=== PATIENT | male | born 1985 | race Two or more races ===

== ENCOUNTER 2023-11-04 09:29 | Inpatient (IN) | payer MEDICAID, OTHER ==
[~2023-11-04] VITALS: Ht 165.1 cm; Wt 68.2 kg
[2023-11-04 09:57] LABS: BASOPHILS % (AUTO) 0.4 % (0.0-2.0); EOSINOPHILS % (AUTO) 0.1 % (1.0-6.0); HEMATOCRIT 44.1 % (41-53); HEMOGLOBIN 14.8 g/dL (13.5-17.5); LYMPHOCYTES # (AUTO) 2.2 K/uL (1.0-4.8); LYMPHOCYTES % (AUTO) 17.3 % (22.0-44.0); MEAN CORPUSCULAR HEMOGLOBIN 32.1 pg (26.0-34.0); MEAN CORPUSCULAR HGB CONC 33.6 G/dL (31.0-37.0); MEAN CORPUSCULAR VOLUME 96 fL (80-100); MONOCYTES # (AUTO) 0.5 K/uL (0.1-1.0); MONOCYTES % (AUTO) 4.3 % (2.0-9.0); NEUTROPHILS # (AUTO) 9.9 K/uL (1.8-7.7); NEUTROPHILS % (AUTO) 77.9 % (40.0-70.0); PLATELET COUNT (AUTO) 303 K/uL (150-450); RED BLOOD CELL COUNT(AUTO) 4.61 MIL/uL (4.50-5.90); RED CELL DISTRIBUTION WIDTH 14.2 % (11.5-14.5); WHITE BLOOD COUNT (AUTO) 12.7 K/uL (4.5-11.0)
[2023-11-04 10:11] LABS: ANION GAP 10 mmol/L (8-16); CALCIUM, TOTAL 10.1 mg/dL (8.8-10.5); CARBON DIOXIDE 30 mmol/L (22-29); CHLORIDE 105 mmol/L (98-107); CREATININE 1.02 mg/dL (0.60-1.30); GLOMERULAR FILTR. RATE CALC > 60 mL/min (>60); GLUCOSE,RANDOM 120 mg/dL (70-110); POTASSIUM 4.5 mmol/L (3.5-5.1); SODIUM SERUM 145 mmol/L (136-145); UREA NITROGEN, BLOOD 12 mg/dL (7-18)
[2023-11-04 10:13] LABS: ALCOHOL, BLOOD (SERUM) < 3 mg/dL (0-10)
[2023-11-04 10:17] LABS: ALANINE AMINOTRANSFERASE 19 U/L (12-78); ALBUMIN 4.6 g/dL (3.4-5.0); ALKALINE PHOSPHATASE 90 U/L (46-116); ASPARTATE AMINOTRANSFERASE 13 U/L (15-37); BILIRUBIN,TOTAL 0.5 mg/dL (0.1-1.0); TOTAL PROTEIN, SERUM 9.2 g/dL (6.4-8.2)
[2023-11-04 13:31] LABS: COVID AG,FIA SOURCE NPH
[2023-11-04 14:16] LABS: SARS-COV2 (COVID) ANTIGEN,FIA Negative (Negative)
[2023-11-04] MEDS ORDERED: LORazepam 2 MG TABLET PO PRN (16:30)
[2023-11-04 18:02] VITALS: BP 118/85; PULSE 91; RESP 19; TEMP 98; O2SAT 97
[2023-11-04] MEDS ORDERED: MAG HYDROX/ALUMINUM HYD/SIMETH ES 30 ML SUSPENSION UDCUP PO PRN (18:30)
[2023-11-04 18:38] VITALS: BP 118/85; PULSE 91; RESP 19; TEMP 98; O2SAT 97
[2023-11-04] MEDS: CloNIDine HCL 0.1 MG TABLET PO PRN (18:38)
[2023-11-04 19:05] VITALS: BP 130/73; PULSE 86; RESP 18; TEMP 97.9; O2SAT 97
[2023-11-04] MEDS: LORazepam 2 MG TABLET PO PRN (19:35)
[2023-11-04 20:00] VITALS: BP 130/53; PULSE 86; RESP 17; TEMP 97.4; O2SAT 97
[2023-11-04 21:01] VITALS: BP 119/69; PULSE 89; RESP 18; TEMP 97.6; O2SAT 98
[2023-11-04] MEDS: CloNIDine HCL 0.1 MG TABLET PO SCH (21:38)
[2023-11-04] MEDS: ZOLPIDEM TARTRATE 10 MG TABLET PO PRN (21:38)
[2023-11-05] VITALS (12 sets, daily range): BP systolic 113–133; BP diastolic 64–85; PULSE 55–91; RESP 15–18; TEMP 97.3–97.8; O2SAT 97–98
[2023-11-05] MEDS: IBUPROFEN 600 MG TABLET PO PRN (00:18)
[2023-11-05] MEDS ORDERED: LORazepam 2 MG TABLET PO PRN (07:00)
[2023-11-05 08:27] LABS: BASOPHILS % (AUTO) 0.4 % (0.0-2.0); EOSINOPHILS % (AUTO) 0.3 % (1.0-6.0); HEMATOCRIT 40.4 % (41-53); HEMOGLOBIN 13.8 g/dL (13.5-17.5); LYMPHOCYTES # (AUTO) 2.4 K/uL (1.0-4.8); LYMPHOCYTES % (AUTO) 23.2 % (22.0-44.0); MEAN CORPUSCULAR HEMOGLOBIN 32.7 pg (26.0-34.0); MEAN CORPUSCULAR HGB CONC 34.2 G/dL (31.0-37.0); MEAN CORPUSCULAR VOLUME 96 fL (80-100); MONOCYTES # (AUTO) 0.6 K/uL (0.1-1.0); NEUTROPHILS # (AUTO) 7.4 K/uL (1.8-7.7); NEUTROPHILS % (AUTO) 70.1 % (40.0-70.0); PLATELET COUNT (AUTO) 260 K/uL (150-450); RED BLOOD CELL COUNT(AUTO) 4.23 MIL/uL (4.50-5.90); RED CELL DISTRIBUTION WIDTH 14.2 % (11.5-14.5); WHITE BLOOD COUNT (AUTO) 10.5 K/uL (4.5-11.0)
[2023-11-05 08:46] LABS: ALANINE AMINOTRANSFERASE 15 U/L (12-78); ALBUMIN 3.9 g/dL (3.4-5.0); ALKALINE PHOSPHATASE 78 U/L (46-116); ANION GAP 13 mmol/L (8-16); ASPARTATE AMINOTRANSFERASE 13 U/L (15-37); BILIRUBIN,TOTAL 0.6 mg/dL (0.1-1.0); CALCIUM, TOTAL 9.3 mg/dL (8.8-10.5); CARBON DIOXIDE 25 mmol/L (22-29); CHLORIDE 104 mmol/L (98-107); CHOLESTEROL 164 mg/dL (131-200); CREATININE 0.99 mg/dL (0.60-1.30); FREE T4 (FREE THYROXINE) 0.94 ng/dL (0.76-1.46); GLOMERULAR FILTR. RATE CALC > 60 mL/min (>60); GLUCOSE,RANDOM 112 mg/dL (70-110); HDL CHOLESTEROL 55 mg/dL (40-60); LDL CHOL (CALC.) 89 mg/dL (0-130); POTASSIUM 3.5 mmol/L (3.5-5.1); SODIUM SERUM 142 mmol/L (136-145); T4 (THYROXINE) 7.4 mcg/dL (4.7-13.3); THYROID STIMULATING HORMONE 1.36 uIU/mL (0.36-3.74); TOTAL PROTEIN, SERUM 7.6 g/dL (6.4-8.2); TRIGLYCERIDES 102 mg/dL (15-150); UREA NITROGEN, BLOOD 17 mg/dL (7-18)
[2023-11-05] MEDS: LORazepam 2 MG TABLET PO SCH (08:46)
[2023-11-05] MEDS: HALOPERIDOL 5 MG TABLET PO PRN (09:51)
[2023-11-05] MEDS ORDERED: ONDANSETRON HCL 4 MG TABLET PO PRN (11:30)
[2023-11-05] MEDS ORDERED: ACETAMINOPHEN 325 MG TABLET PO PRN (11:30)
[2023-11-05] MEDS ORDERED: ALBUTEROL SULFATE HFA 90 MCG/PUFF 8 GM INHALER IH PRN (11:30)
[2023-11-05] MEDS ORDERED: NICOTINE 14 MG/24 HOUR PATCH TD PRN (11:30)
[2023-11-05] MEDS ORDERED: MAGNESIUM HYDROXIDE SUSPENSION 30 ML UDCUP PO PRN (11:30)
[2023-11-05] MEDS ORDERED: MAG HYDROX/ALUMINUM HYD/SIMETH ES 30 ML SUSPENSION UDCUP PO PRN (11:30)
[2023-11-05] MEDS ORDERED: GuaiFENesin/D-METHORPHAN [SUGAR-FREE] 200-20MG/10 ML SYRUP UDCUP PO PRN (11:30)
[2023-11-05] MEDS ORDERED: PETROLATUM,WHITE 28 GM JELLY TP PRN (11:30)
[2023-11-05] MEDS ORDERED: DOCUSATE SODIUM 100 MG CAPSULE PO PRN (11:30)
[2023-11-05] MEDS ORDERED: LOPERAMIDE HCL 2 MG CAPSULE PO PRN (11:30)
[2023-11-05] MEDS ORDERED: IBUPROFEN 400 MG TABLET PO PRN (11:30)
[2023-11-05] MEDS ORDERED: CloNIDine HCL 0.1 MG TABLET PO PRN (11:30)
[2023-11-05] MEDS: SERTRALINE HCL 50 MG TABLET PO SCH (14:15)
[2023-11-05] MEDS: MULTIVITAMINS WITH MINERALS, THERAPEUTIC TABLET PO SCH (14:15)
[2023-11-05] MEDS: DIAZEPAM 10 MG TABLET PO PRN (14:15)
[2023-11-05] MEDS: FOLIC ACID 1 MG TABLET PO SCH (14:15)
[2023-11-05] MEDS: CYANOCOBALAMIN 1,000 MCG/ML VIAL IM ONE (14:15)
[2023-11-05] MEDS: THIAMINE 100 MG TABLET PO SCH (16:47)
[2023-11-06] VITALS (9 sets, daily range): BP systolic 110–140; BP diastolic 70–98; PULSE 55–81; RESP 16–18; TEMP 97.4–98.1; O2SAT 96–98
[2023-11-06] MEDS: HydrOXYzine PAMOATE 50 MG CAPSULE PO PRN (06:52)
[2023-11-06] MEDS ORDERED: DIAZEPAM 10 MG TABLET PO PRN (07:00)
[2023-11-06 08:29] LABS: HEMOGLOBIN A1C 5.4 % (3.8-5.6)
[2023-11-06 08:31] LABS: CHOL/HDL RATIO 3.2 (4.2-7.3); THYROID STIMULATING HORMONE 1.96 uIU/mL (0.36-3.74)
[2023-11-06] MEDS: DIAZEPAM 10 MG TABLET PO SCH (08:38)
[2023-11-07 06:40] VITALS: BP 129/83; PULSE 60; RESP 18; TEMP 97.5; O2SAT 98
[2023-11-07] MEDS ORDERED: LORazepam 1 MG TABLET PO PRN (07:00)
[2023-11-07 08:19] VITALS: BP 113/71; PULSE 54; RESP 17; TEMP 97.8; O2SAT 98
[2023-11-07] MEDS ORDERED: LORazepam 1 MG TABLET PO SCH (09:00)
[2023-11-07] MEDS ORDERED: SERT-439 PO (10:17)
[2023-11-08] MEDS ORDERED: LORazepam 1 MG TABLET PO PRN (07:00)
[2023-11-08] MEDS ORDERED: DIAZEPAM 5 MG TABLET PO PRN (07:00)
[2023-11-08] MEDS ORDERED: DIAZEPAM 5 MG TABLET PO SCH (09:00)
[2023-11-09] MEDS ORDERED: DIAZEPAM 5 MG TABLET PO PRN (07:00)
== END 2023-11-07 11:35 | disposition home or self-care (01) | DRG 751 ==
LOC: EMS 09:29 → B2S 14:48
PROVIDERS: ADMIT Psychiatry & Neurology Psychiatry; ATTEND Psychiatry & Neurology Psychiatry
DX: F33.2 Major depressive disorder, recurrent severe without psychotic features (principal); R45.851 Suicidal ideations; F11.13 Opioid abuse with withdrawal; Z20.822 Contact with and (suspected) exposure to COVID-19; R73.9 Hyperglycemia, unspecified; G47.00 Insomnia, unspecified; F13.10 Sedative, hypnotic or anxiolytic abuse, uncomplicated; Z79.899 Other long term (current) drug therapy; Z91.52 Personal history of nonsuicidal self-harm
CPT/HCPCS: 80053; 80061; 83036; 84436; 84439; 84443; 85025; 86592; 99285; G0480; J3420